=== PATIENT | male | born 1950 | race Caucasian/White ===

== ENCOUNTER 2016-12-31 07:50 | Day surgery (SDC) | payer BC ==
--- NOTE | ~2016-12-31 | EGD ---
EGD REPORT [facility] [address] [place] [address] NAME: DANTE VALLES : [birth year] [place] [facility] [place] [id number] AGE: 66 ADM/REG DATE : 12/31/16 MR#: [id number] REPORT SERV DATE: 12/31/16 DICTATED BY: JOVANNY MARROQUIN DATE: 12/31/16 REPORT STATUS : Draft TRANSCRIBED BY: [employer] DATE: 12/31/16 [facility] Patient Name: Dante Valles Date of : 1950 Attending MD: JOVANNY MARROQUIN, Procedure Date No Time: 12/31/2016 Procedure: Colonoscopy Indications: Screening for colorectal malignant neoplasm Referring MD: Jose Iglesias Medicines: Monitored Anesthesia Care Complications: No immediate complications. Estimated blood loss: None. Procedure: Pre-Anesthesia Assessment: - ASA Grade Assessment: III - A patient with severe systemic disease. After I obtained informed consent, the scope was passed under direct vision. Throughout the procedure, the patient's blood pressure, pulse, and oxygen saturations were monitored continuously. The CF [id number] was introduced through the anus and advanced to the cecum, identified by appendiceal orifice and ileocecal valve. The colonoscopy was performed without difficulty. The patient tolerated the procedure well. The quality of the bowel preparation was adequate. Findings: The perianal and digital rectal examinations were normal. Internal hemorrhoids were found during retroflexion and were Grade I (internal hemorrhoids that do not prolapse). The exam was otherwise without abnormality on direct and retroflexion views. Impression: - Internal hemorrhoids. - The examination was otherwise normal on direct and retroflexion views. Recommendation: - Patient has a contact number available for emergencies. The signs and symptoms of potential delayed complications were discussed with the patient. Return to normal activities tomorrow. Written discharge instructions were provided to the patient. - Return to previous diet. - Continue present medications. - Repeat colonoscopy in 10 years for screening purposes. Procedure Code(s): --- Professional --- EGD REPORT [facility] [address] [place] [address] NAME: DANTE VALLES : [birth year] [place] [facility] [place] [id number] AGE: 66 ADM/REG DATE : 12/31/16 MR#: [id number] REPORT SERV DATE: 12/31/16 DICTATED BY: JOVANNY MARROQUIN DATE: 12/31/16 REPORT STATUS : Draft TRANSCRIBED BY: [email or web address] DATE: 12/31/16 [id number], Colonoscopy, flexible, proximal to splenic flexure; diagnostic, with or without collection of specimen(s) by brushing or washing, with or without colon decompression (separate procedure) Diagnosis Code(s): --- Professional --- K64.0, First degree hemorrhoids Z12.11, Encounter for screening for malignant neoplasm of colon CPT copyright 2013 [employer]. All rights reserved. The codes documented in this report are preliminary and upon brazing furnace feeder review may be revised to meet current compliance requirements. JOVANNY MARROQUIN, 12/31/2016 9:21 AM Number of Addenda: 0 Note Initiated On: 12/31/2016 8:44 AM Scope Withdrawal Time 0 hours 10 minutes 49 seconds [address] [place] [address]
[~2016-12-31 07:50] MED LIST: ASAB PO; CYANO1000T PO; GLUCPH PO; LIPITOR40 PO; LIPITOR80 MG PO; MULTIPLE VIT PO; NORV5 PO; PRILOSEC OTC20 MG PO; PRILOSEC40 MG PO; PRIN10 PO; PRINZIDE1 TA1 PO; TRULICITY0.75 MG/0. SQ; TRULICITY1.5 MG/0.5 SQ; VITAMIN D31000 UNIT PO
== END 2016-12-31 23:59 | disposition home or self-care (01) ==
LOC: DMU 07:50
PROVIDERS: Internal Medicine Gastroenterology
PROC: 0DJD8ZZ Inspection of Lower Intestinal Tract, Via Natural or Artificial Opening Endoscopic (ICD-10-PCS; principal; 2016-12-31 09:00)
DX: Z12.11 Encounter for screening for malignant neoplasm of colon (principal); K64.0 First degree hemorrhoids; I10 Essential (primary) hypertension; G47.33 Obstructive sleep apnea (adult) (pediatric); E11.9 Type 2 diabetes mellitus without complications; K21.9 Gastro-esophageal reflux disease without esophagitis; E11.319 Type 2 diabetes mellitus with unspecified diabetic retinopathy without macular edema; Z88.0 Allergy status to penicillin; Z88.5 Allergy status to narcotic agent; Z79.82 Long term (current) use of aspirin; Z79.899 Other long term (current) drug therapy; Z90.89 Acquired absence of other organs; Z90.49 Acquired absence of other specified parts of digestive tract; Z98.890 Other specified postprocedural states
CPT/HCPCS: 82962